=== PATIENT | female | born 1960 | race Caucasian/White ===

== ENCOUNTER 2022-06-12 12:53 | Emergency (ER) | payer MEDICARE ==
[~2022-06-12] VITALS: Ht 167.6 cm; Wt 70.4 kg
[2022-06-12 13:08] VITALS: BP 132/81
[2022-06-12 13:18] VITALS: BP 123/75
[2022-06-12 13:31] VITALS: BP 134/87
[2022-06-12 13:33] LABS: HEMOGLOBIN 14.2 g/dl (12.0-16.0); IMMATURE GRANULOCYTES 0.1 % (0.0-5.0); MEAN CELL VOLUME 93.4 fL CALC (80.0-100.0); MEAN CORPUSCULAR HGB 29.5 pG CALC (26.0-32.0); MEAN CORPUSCULAR HGB CONC 31.6 g/dL CAL (32.0-36.0); NEUT# 4.1 thou/uL (2.00-7.15); RED BLOOD COUNT 4.82 mill/uL (4.20-5.60); RED CELL DISTRI WIDTH 13.2 % (11.5-15.5)
[2022-06-12 13:50] LABS: ALBUMIN 4.1 g/dL (3.2-5.0); ALKALINE PHOSPHATASE 85 u/l (38-126); ANION GAP 12 (6-22 (CALC)); BILIRUBIN, TOTAL 0.3 mg/dL (0.0-1.4); BUN 14 mg/dL (8-23); BUN/CREATININE RATIO 19 (12-20 (CALC)); CARBON DIOXIDE 31 mmol/l (22-30); CHLORIDE 103 mmol/l (95-108); CREATININE 0.7 mg/dL (0.5-1.0); GFR FOR AFR.AMER. > 60 ML/MIN (>=60 (CALC)); GFR OTHER RACES > 60 ML/MIN (>=60 (CALC)); POTASSIUM 4.7 mmol/l (3.5-5.1); SGOT/AST 29 u/l (9-36); SODIUM 141 mmol/l (137-146)
[2022-06-12 14:00] VITALS: BP 108/67
[2022-06-12 14:30] VITALS: BP 119/75
[2022-06-12] MEDS ORDERED: PREDNISONE20 MG PO (15:03)
[2022-06-12] MEDS ORDERED: PROAIR HFA108 MCG/AC IN (15:03)
[2022-06-12] MEDS ORDERED: TUSSI-PRE2 PO (15:03)
[2022-06-12 15:49] VITALS: BP 119/75
== END 2022-06-12 15:48 | disposition home or self-care (01) ==
LOC: ED 12:53
PROVIDERS: Internal Medicine
DX: R07.9 Chest pain, unspecified (principal); R05.9 Cough, unspecified; F32.A Depression, unspecified; F41.9 Anxiety disorder, unspecified; Z87.820 Personal history of traumatic brain injury; F17.210 Nicotine dependence, cigarettes, uncomplicated